=== PATIENT | female | born 1995 | race African-American/Black ===

== ENCOUNTER 2016-09-26 15:40 | Emergency (ER) | payer MEDICAID ==
[2016-09-26 16:21] VITALS: BP 103/76
[2016-09-26 16:46] LABS: Hematocrit 41 % (35-47); Hemoglobin 13.4 g/dl (12.0-16.0); Mean Corpuscular HGB Conc 33 g/dl (31-36); Mean Corpuscular Hemoglobin 29 pg (27-31); Mean Corpuscular Volume 89 fL (80-97); Mean Platelet Volume 7 um3 (7.4-10.4); Red Blood Count 4.58 10^6/ul (4.0-5.4); Red Cell Distribution Width 13 % (10.5-15); White Blood Count 3.9 10^3/ul (3.5-10.8)
[2016-09-26 16:54] LABS: Urine Bacteria 1+ (Absent); Urine Bilirubin Negative (Negative); Urine Glucose Negative (Negative); Urine Nitrite Negative (Negative)
[2016-09-26 17:01] LABS: ALT 7 U/L (7-52); AST 15 U/L (13-39); Albumin 4.5 g/dL (3.2-5.2); Alkaline Phosphatase 39 U/L (34-104); Amylase 20 U/L (29-103); Anion Gap -7 mmol/L (2-11); BUN/Creatinine Ratio 10.5 (8-20); Blood Urea Nitrogen 8 mg/dL (6-24); C Reactive Protein < 1.00 mg/L (< 5.00); CO2 Carbon Dioxide 25 mmol/L (22-32); Calcium 9.6 mg/dL (8.6-10.3); Chloride 111 mmol/L (101-111); EGFR African American 122.4 (>60); EGFR Non-African American 95.2 (>60); Glucose 82 mg/dL (70-100); Lipase 13 U/L (11.0-82.0); Potassium 3.7 mmol/L (3.5-5.0); Sodium 129 mmol/L (133-145); Total Protein 7.5 g/dL (6.4-8.9)
[2016-09-26 17:22] LABS: Urine Bacteria 1+ (Absent); Urine Bilirubin Negative (Negative); Urine Glucose Negative (Negative); Urine Nitrite Negative (Negative)
[2016-09-26] MEDS ORDERED: metroNIDAZOLE TAB* 250 MG PO ONE (18:25)
--- NOTE | 2016-09-26 19:09 | ED ---
Rashmi Rhoades Claudia, scribed for Maximus Bowser MD on 09/26/16 at 1621 . Complex/Multi-Sys Presentation - HPI Summary HPI Summary: 21 year old female presents to the ED with what she states as "a bad infection in her body". Pt notes that her Sx have been happening for a year now but she has not been able to figure out what is happening. She admits to sore throat,SIMS, CP, SOB and white vaginal discharge. Pt states she has been sexually active but not recently, also noted she had her last menstrual period about a month ago. She notes that it feels like "the infection is popping all over her body". She notes that last night it was "popping" around her arms and it is "popping" around her throat. She states that she thinks she is going to . Pt states she needs help to get medicine or whatever it is to get it out of her body. - History Of Current Complaint Time Seen by Provider: 09/26/16 16:14 Hx Obtained From: Patient Onset/Duration: Lasting Weeks - a year, Still Present Timing: Constant Associated Signs And Symptoms: Positive: Headache, SOB, Chest Pain, Other - vaginal discharge - Allergies/Home Medications Allergies/Adverse Reactions: Allergies Allergy/AdvReac Type Severity Reaction Status Date / Time No Known Allergies Allergy Verified 09/26/16 16:00 PMH/Surg Hx/FS Hx/Imm Hx Previously Healthy: Yes Endocrine/Hematology History: Denies: Hx Diabetes - Surgical History Surgery Procedure, Year, and Place: No SHx Infectious Disease History: Denies: Traveled Outside the [place] in Last 30 Days - Family History Known Family History: Negative: Hypertension, Diabetes - Social History Occupation: Unemployed Lives: Alone Alcohol Use: None Hx Substance Use: Yes Substance Use Type: Reports: None Hx Tobacco Use: Yes Smoking Status (MU): Heavy Every Day Tobacco Smoker Review of Systems Constitutional: Negative Eyes: Negative Positive: Sore Throat Positive: Chest Pain Positive: Shortness Of Breath Gastrointestinal: Negative Positive: discharge Musculoskeletal: Negative Skin: Negative Positive: Headache Psychological: Normal All Other Systems Reviewed And Are Negative: Yes Physical Exam - Summary Physical Exam Summary: VITAL SIGNS: Reviewed. GENERAL: Patient is a well developed and nourished female who is lying comfortable in the stretcher. Patient is not in any acute respiratory distress. HEAD AND FACE: Normocephalic and atraumatic. EYES: PERRLA, EOMI x 2, No injected conjunctiva. EARS: Hearing grossly intact. Ear canals and tympanic membranes are WNL. MOUTH: Oropharynx within normal limits. NECK: Supple, trachea is midline, no adenopathy, no JVD. CHEST: Symmetric, no tenderness at palpation LUNGS: Clear to auscultation bilaterally. No wheezing or crackles. CVS: RRR,, S1 and S2 present, no murmurs or gallops appreciated. ABDOMEN: Soft, non-tender. No signs of distention. Positive bowel sounds. No rebound no guarding, and no masses palpated. No abdominal bruit or pulsations. EXTREMITIES: FROM in all major joints, no edema, no cyanosis or clubbing. NEURO: Alert and oriented x 3. No acute neurological deficits. Speech is normal. SKIN: Dry and warm : Circumcised penis, both testicles are descended. No masses are appreciated. Positive cremasteric reflex. SPEECH AND LANGUAGE CLINICIAN: Female clinical dermatologist is present during the examination. External genitalia: within normal limits. No rashes, lesions or ecchymosis. Speculum exam: vaginal blackwell with no lesions, masses, or rashes. Positive white discharge. Cervix normal. No CMTs. No adnexal masses. All cultures were collected and send to the lab. Triage Information Reviewed: Yes Vital Signs On Initial Exam: Initial Vitals Temp Pulse Resp BP Pulse Ox 99.4 F 62 16 103/76 98 09/26/16 16:05 09/26/16 16:05 09/26/16 16:05 09/26/16 16:05 09/26/16 16:05 Vital Signs Reviewed: Yes Diagnostics - Vital Signs Vital Signs Temp Pulse Resp BP Pulse Ox 09/26/16 16:05 99.4 F 62 16 103/76 98 - Laboratory Lab Results: Lab Results 09/26/16 09/26/16 09/26/16 Range/Units 16:02 16:02 16:15 WBC 3.9 (3.5-10.8) 10^3/ul RBC 4.58 (4.0-5.4) 10^6/ul Hgb 13.4 (12.0-16.0) g/dl Hct 41 (35-47) % MCV 89 (80-97) fL MCH 29 (27-31) pg MCHC 33 (31-36) g/dl RDW 13 (10.5-15) % Plt Count 348 (150-450) 10^3/ul MPV 7 L (7.4-10.4) um3 Neut % (Auto) 33.5 L (38-83) % Lymph % (Auto) 52.4 H (25-47) % [place] % (Auto) 11.1 H (1-9) % Eos % (Auto) 2.2 (0-6) % Baso % (Auto) 0.8 (0-2) % Absolute Neuts (auto) 1.3 L (1.5-7.7) 10^3/ul Absolute Lymphs (auto) 2.1 (1.0-4.8) 10^3/ul Absolute Monos (auto) 0.4 (0-0.8) 10^3/ul Absolute Eos (auto) 0.1 (0-0.6) 10^3/ul Absolute Basos (auto) 0 (0-0.2) 10^3/ul Absolute Nucleated RBC 0 10^3/ul Nucleated RBC % 0.1 Sodium 129 L (133-145) mmol/L Potassium 3.7 (3.5-5.0) mmol/L Chloride 111 (101-111) mmol/L Carbon Dioxide 25 (22-32) mmol/L Anion Gap -7 L (2-11) mmol/L BUN 8 (6-24) mg/dL Creatinine 0.76 (0.51-0.95) mg/dL Est GFR ( Amer) 122.4 (>60) Est GFR (Non-Af Amer) 95.2 (>60) BUN/Creatinine Ratio 10.5 (8-20) Glucose 82 (70-100) mg/dL Calcium 9.6 (8.6-10.3) mg/dL Total Bilirubin 0.40 (0.2-1.0) mg/dL AST 15 (13-39) U/L ALT 7 (7-52) U/L Alkaline Phosphatase 39 (34-104) U/L C-Reactive Protein < 1.00 (< 5.00) mg/L Total Protein 7.5 (6.4-8.9) g/dL Albumin 4.5 (3.2-5.2) g/dL Globulin 3.0 (2-4) g/dL Albumin/Globulin Ratio 1.5 (1-3) Amylase 20 L (29-103) U/L Lipase 13 (11.0-82.0) U/L Urine Color Yellow Urine Appearance Cloudy Urine pH 6.0 (5-9) Ur Specific [place] 1.021 (1.010-1.030) Urine Protein Negative (Negative) Urine Ketones Negative (Negative) Urine Blood Negative (Negative) Urine Nitrate Negative (Negative) Urine Bilirubin Negative (Negative) Urine Urobilinogen Negative (Negative) Ur Leukocyte Esterase 3+ H (Negative) Urine WBC (Auto) 1+(6-10/hpf) H (Absent) Urine RBC (Auto) 3+(>10/hpf) H (Absent) Ur Squamous Epith Cells Present H (Absent) Urine Bacteria 1+ H (Absent) Urine Glucose Negative (Negative) 09/26/16 Range/Units 17:05 WBC (3.5-10.8) 10^3/ul RBC (4.0-5.4) 10^6/ul Hgb (12.0-16.0) g/dl Hct (35-47) % MCV (80-97) fL MCH (27-31) pg MCHC (31-36) g/dl RDW (10.5-15) % Plt Count (150-450) 10^3/ul MPV (7.4-10.4) um3 Neut % (Auto) (38-83) % Lymph % (Auto) (25-47) % [place] % (Auto) (1-9) % Eos % (Auto) (0-6) % Baso % (Auto) (0-2) % Absolute Neuts (auto) (1.5-7.7) 10^3/ul Absolute Lymphs (auto) (1.0-4.8) 10^3/ul Absolute Monos (auto) (0-0.8) 10^3/ul Absolute Eos (auto) (0-0.6) 10^3/ul Absolute Basos (auto) (0-0.2) 10^3/ul Absolute Nucleated RBC 10^3/ul Nucleated RBC % Sodium (133-145) mmol/L Potassium (3.5-5.0) mmol/L Chloride (101-111) mmol/L Carbon Dioxide (22-32) mmol/L Anion Gap (2-11) mmol/L BUN (6-24) mg/dL Creatinine (0.51-0.95) mg/dL Est GFR ( Amer) (>60) Est GFR (Non-Af Amer) (>60) BUN/Creatinine Ratio (8-20) Glucose (70-100) mg/dL Calcium (8.6-10.3) mg/dL Total Bilirubin (0.2-1.0) mg/dL AST (13-39) U/L ALT (7-52) U/L Alkaline Phosphatase (34-104) U/L C-Reactive Protein (< 5.00) mg/L Total Protein (6.4-8.9) g/dL Albumin (3.2-5.2) g/dL Globulin (2-4) g/dL Albumin/Globulin Ratio (1-3) Amylase (29-103) U/L Lipase (11.0-82.0) U/L Urine Color Yellow Urine Appearance Cloudy Urine pH 7.0 (5-9) Ur Specific [place] 1.012 (1.010-1.030) Urine Protein Negative (Negative) Urine Ketones Negative (Negative) Urine Blood Negative (Negative) Urine Nitrate Negative (Negative) Urine Bilirubin Negative (Negative) Urine Urobilinogen Negative (Negative) Ur Leukocyte Esterase 2+ H (Negative) Urine WBC (Auto) Trace(0-5/hpf) (Absent) Urine RBC (Auto) Trace(0-2/hpf) (Absent) Ur Squamous Epith Cells Present H (Absent) Urine Bacteria 1+ H (Absent) Urine Glucose Negative (Negative) Result Diagrams: 09/26/16 16:02 09/26/16 16:02 Lab Statement: Any lab studies that have been ordered have been reviewed, and results considered in the medical decision making process. Re-Evaluation - Re-Evaluation 1 Re-Evaluation Time: 18:25 Change: Improved Comment: Lab resulsts are discussed with patient. Pt is improved and is ready to be d/c home with follow-up with PCP. Complex Multi-Symp Course/Dx Assessment/Plan: 21 year old [facility] with c/c of not feeling well , weakness and vaginal discharge. She reports having Sx for 1 year, sexually active but she reports not recently. The last menstrual period was on September 01 but shes not sure. She denies vaginal bleeding, lab within nml limits except sodium of 129. Urine analysis is contaminated therefore I sent for urine cultures. Pelvic exam reveals some white discharge likely; bacterial vaginosis therefore pt is given flavix. Everything was discussed with the pt, she is stable and will be d/c home with follow-up with PCP. \\. I discussed all my findings and test results with the patient. Patient understands and agrees. Patient was instructed to return to the emergency room immediately if any of the symptoms return or worsens. Patient understands and agrees. Plan of care was discussed with the patient and patient understands and agrees with the plan of care. All questions were answered at patient satisfaction. There were no further complaints or concerns. Patient was instructed to follow up with primary care physician within 3 to 5 days. Patient is hemodynamically stable. Patient is alert and oriented x 3. No acute neurological deficits. - Diagnoses Provider Diagnoses: Bacterial vaginosis Discharge - Discharge Plan Condition: Stable Disposition: HOME Prescriptions: Metronidazole [Flagyl 500 MG TAB] 500 mg PO BID #14 tab Patient Education Materials: Metronidazole (By mouth), Bacterial Vaginosis (ED) Referrals: [facility] [Outside] - 2 Days (Please follow-up with a [facility] Care Provider. ) The documentation as recorded by the Rashmi boswell Claudia accurately reflects the service I personally performed and the decisions made by me, Maximus Bowser MD.
--- NOTE | 2016-09-28 07:27 | ED ---
Progress - Progress Note Progress Note: Patient with vaginal culture shows + trichomonas. Patient was appropriately treated with metronidazole. Attempted to call patient to alert her of STD and need to treat partners, however only active phone number is inactive. Will send a letter to ask the patient to call to discuss results. Re-Evaluation - Re-Evaluation 1 Re-Evaluation Time: 18:25 Change: Improved Comment: Lab resulsts are discussed with patient. Pt is improved and is ready to be d/c home with follow-up with PCP. Course/Dx - Diagnoses Provider Diagnoses: Bacterial vaginosis
== END 2016-09-26 19:10 | disposition home or self-care (01) ==
LOC: ED 15:40
DX: N76.0 Acute vaginitis (principal); F17.200 Nicotine dependence, unspecified, uncomplicated
CPT/HCPCS: 36415; 80053; 81003; 81015; 82150; 83690; 85025; 86140; 87086; 87480; 87491; 87510; 87591; 87660; 99283; A9270-GY

== ENCOUNTER 2016-10-28 17:45 | Emergency (ER) | payer MEDICAID ==
[2016-10-28 17:57] VITALS: BP 111/69
[2016-10-28] MEDS ORDERED: Ketorolac INJ* 60 MG/2 ML VIAL IM ONE (18:42)
--- NOTE | 2016-10-28 19:21 | ED ---
Complex/Multi-Sys Presentation - HPI Summary HPI Summary: Patient arrives with mother to ED with a CC of toothache and body aches 10/10 "all over my body." She states the body aches have been present for over 1 year and possibly up to 7 years. She feels as though there are bugs crawling on her skin and states it id definitely from a systemic infection in which she needs antibiotics to be treated. She was seen in ED 1 month ago and full labs and pelvic examination performed. All labs WNL. She continues to feel the same despite the full workup and is requesting another full workup. Provider explained that d/t her feeling the same as the previous month, the likeliness of labs being the same are very high. Mother agrees with provider and thinks she is feeling the sensitivities all over body because of the tooth infection. Patient agrees to accept antibiotic and follow up as an outpatient. Denies fever, urinary or abdominal pain in specific location. Continues to state she has 10/10 all over, the same as it has been for many years. - History Of Current Complaint Chief Complaint: EDDentalPain Time Seen by Provider: 10/28/16 17:59 Hx Obtained From: Patient, Family/Can Striper Onset/Duration: Gradual Onset, Still Present Timing: Constant Severity Currently: Moderate Severity Initially: Moderate Location: Pain At: - all over Character: Unable To Describe - feels as if something is crawling all over her skin Related History: Similar Episode/Diagnosed As: - previous visits - Allergies/Home Medications Allergies/Adverse Reactions: Allergies Allergy/AdvReac Type Severity Reaction Status Date / Time No Known Allergies Allergy Verified 09/26/16 16:00 PMH/Surg Hx/FS Hx/Imm Hx Previously Healthy: Yes Endocrine/Hematology History: Denies: Hx Diabetes - Surgical History Surgery Procedure, Year, and Place: No SHx Infectious Disease History: No Infectious Disease History: Denies: Traveled Outside the [place] in Last 30 Days - Family History Known Family History: Negative: Hypertension, Diabetes - Social History Occupation: Student Lives: With Family Alcohol Use: None Hx Substance Use: Yes Substance Use Type: Reports: None Hx Tobacco Use: Yes Smoking Status (MU): Heavy Every Day Tobacco Smoker Review of Systems Constitutional: Negative Cardiovascular: Negative Respiratory: Negative Positive: Abdominal Pain, Other - pain all over Genitourinary: Negative Positive: Other - pain all over Positive: Other - feels like something is crawling on her skin Neurological: Negative Positive: Anxious All Other Systems Reviewed And Are Negative: Yes Physical Exam Triage Information Reviewed: Yes Vital Signs On Initial Exam: Initial Vitals Temp Pulse Resp BP Pulse Ox 99.2 F 82 16 111/69 99 10/28/16 17:50 10/28/16 17:50 10/28/16 17:50 10/28/16 17:50 10/28/16 17:50 Vital Signs Reviewed: Yes Appearance: Positive: Well-Appearing, No Pain Distress, Well-Nourished Skin: Positive: Warm, Skin Color Reflects Adequate Perfusion Head/Face: Positive: Normal Head/Face Inspection Eyes: Positive: EOMI, ROB ENT: Positive: Pharynx normal, TMs normal Dental: Positive: Abscess @ - left upper canine Respiratory/Lung Sounds: Positive: Clear to Auscultation, Breath Sounds Present Cardiovascular: Positive: Normal Abdomen Description: Positive: Nontender, No Organomegaly, Other: - non-tender on exam, although her pain is 10/10 at rest Bowel Sounds: Positive: Present Musculoskeletal: Positive: Normal Neurological: Positive: Normal, Reflexes Intact, Speech Normal Psychiatric: Positive: Anxious AVPU Assessment: Alert Diagnostics - Vital Signs Vital Signs Temp Pulse Resp BP Pulse Ox 10/28/16 17:50 99.2 F 82 16 111/69 99 - Laboratory Lab Statement: Any lab studies that have been ordered have been reviewed, and results considered in the medical decision making process. Complex Multi-Symp Course/Dx Course Of Treatment: Patient was counseled on importance of PCP and routine dental care. Provider explained lab work obtained 1 month ago would most likely be similiar if we did labwork today d/t her feeling the same. No fever, SIMS. Feels as if bugs are crawling on her skin and states it is d/t the systemic infection in her body. Upper left canine with some erythema around the tooth with multiple dental caries and gingivitis. Abx given. Toradol given. Encouraged ibuprofen at home. Patient is OK with plan and will call womens health and PCP for further evaluation. - Diagnoses Provider Diagnoses: Dental abscess, Gingivitis Is Visit Related: No Discharge - Discharge Plan Condition: Stable Disposition: HOME Prescriptions: Amoxicillin/Clavulanate TAB* [Augmentin TAB 875*] 875 mg PO BID #14 tab MDD 2 Patient Education Materials: Dental Abscess (ED) Referrals: [facility] [Provider Group] [facility] [Provider Group] Additional Instructions: Follow up with dentist and PCP Augmentin twice daily for 7 days May take ibuprofen 600mg three times daily with meals as needed for pain.
== END 2016-10-28 19:07 | disposition home or self-care (01) ==
LOC: ED 17:45
DX: K04.7 Periapical abscess without sinus (principal); K05.10 Chronic gingivitis, plaque induced; F17.200 Nicotine dependence, unspecified, uncomplicated
CPT/HCPCS: 96372; 99282; J1885

== ENCOUNTER → 2017-06-19 12:34 | Emergency (ER) | payer SELFPAY ==
[2017-06-19 12:54] VITALS: BP 117/56
[2017-06-19 13:33] LABS: UR Preg Internal Control QC Line Present; Urine Bilirubin Negative (Negative); Urine Glucose Negative (Negative); Urine Nitrite Negative (Negative)
--- NOTE | 2017-06-25 12:32 | ED ---
Elba Rhoades Nilda, scribed for Pilo Sanchez MD on 06/19/17 at 1332 . Complex/Multi-Sys Presentation - HPI Summary HPI Summary: Patient is a 22 y.o. F presenting to [facility] with a chief complaint of constant moderate wisdom tooth pain which has been ongoing for 3 years. Symptoms are alleviated by OTC pain medication. Patient reports throat pressure and possible due to late menstrual period (20 days late). - History Of Current Complaint Chief Complaint: EDGeneral Time Seen by Provider: 06/19/17 13:12 Hx Obtained From: Patient Onset/Duration: Gradual Onset - 3 years, Still Present Timing: Constant Severity Initially: Moderate Location: Pain At: - teeth Alleviating Factor(s): OTC pain medication Associated Signs And Symptoms: Positive: Other - sore throat - Allergies/Home Medications Allergies/Adverse Reactions: Allergies Allergy/AdvReac Type Severity Reaction Status Date / Time No Known Allergies Allergy Verified 09/26/16 16:00 PMH/Surg Hx/FS Hx/Imm Hx Endocrine/Hematology History: Denies: Hx Diabetes - Surgical History Surgery Procedure, Year, and Place: No SHx Infectious Disease History: Yes Infectious Disease History: Denies: Traveled Outside the [place] in Last 30 Days - Family History Known Family History: Negative: Hypertension, Diabetes - Social History Alcohol Use: None Hx Substance Use: Yes Substance Use Type: Reports: None Hx Tobacco Use: Yes Smoking Status (MU): Heavy Every Day Tobacco Smoker Review of Systems Negative: Fever, Chills Negative: Erythema Positive: Dental Pain - wisdom teeth, Sore Throat - throat pressure Negative: Chest Pain Negative: Shortness Of Breath, Cough Negative: Abdominal Pain, Vomiting, Nausea Positive: other - late menstrual period. Negative: dysuria, hematuria Negative: Myalgia, Edema Negative: Rash Neurological: Other - Negative dizziness All Other Systems Reviewed And Are Negative: Yes Physical Exam - Summary Physical Exam Summary: Constitutional: Well-developed, Well-nourished, Alert. (-) Distressed Skin: Warm, Dry HENT: Normocephalic; Atraumatic Eyes: Conjunctiva normal Neck: Musculoskeletal ROM normal neck. (-) JVD, (-) Stridor, (-) Tracheal deviation Cardio: Rhythm regular, rate normal, Heart sounds normal; Intact distal pulses; The pedal pulses are 2+ and symmetric. Radial pulses are 2+ and symmetric. (-) Murmur Pulmonary/Chest wall: Effort normal. (-) Respiratory distress, (-) Wheezes, (-) Rales Abd: Soft, (-) Tenderness, (-) Distension, (-) Guarding, (-) Rebound Musculoskeletal: (-) Edema Lymph: (-) Cervical adenopathy Neuro: Alert, Oriented x3 Psych: Mood and affect Normal Triage Information Reviewed: Yes Vital Signs On Initial Exam: Initial Vitals Temp Pulse Resp BP Pulse Ox 98.2 F 64 12 117/56 100 06/19/17 12:41 06/19/17 12:41 06/19/17 12:41 06/19/17 12:41 06/19/17 12:41 Vital Signs Reviewed: Yes Diagnostics - Vital Signs Vital Signs Temp Pulse Resp BP Pulse Ox 06/19/17 12:41 98.2 F 64 12 117/56 100 - Laboratory Lab Statement: Any lab studies that have been ordered have been reviewed, and results considered in the medical decision making process. Complex Multi-Symp Course/Dx Assessment/Plan: Patient is a 22 y.o. F presenting to [facility] with a chief complaint of constant moderate wisdom tooth pain which has been ongoing for 3 years. Symptoms are alleviated by OTC pain medication. Patient reports throat pressure and possible due to late menstrual period (20 days late). Test results with no significant abnormalities except for positive test. Patient will be discharged with a diagnosis of and dental pain. Patient will follow up with OBGYN in 2-3 days and dentist. She may take Tylenol for pain. The patient is agreeable with this plan. - Diagnoses Provider Diagnoses: , Pain, dental Discharge - Discharge Plan Condition: Stable Disposition: HOME Prescriptions: Penicillin VK TAB* [Penicillin VK 250 mg Tab*] 500 mg PO QID #40 tab Vitamin TAB* 1 tab PO DAILY #30 tab Patient Education Materials: (ED), Toothache (ED) Referrals: Jessenia Schmid MD [Medical Doctor] - 2 Days Additional Instructions: Follow up with dentist. Take Tylenol for pain. RETURN TO THE EMERGENCY DEPARTMENT FOR CHANGING OR WORSENING SYMPTOMS. The documentation as recorded by the Elba boswell Nilda accurately reflects the service I personally performed and the decisions made by , Pilo Sanchez MD.
== END | disposition home or self-care (01) ==
LOC: ED 12:34
DX: J02.9 Acute pharyngitis, unspecified (principal); K08.89 Other specified disorders of teeth and supporting structures; F17.210 Nicotine dependence, cigarettes, uncomplicated
CPT/HCPCS: 81003; 81025; 99282

== ENCOUNTER 2017-08-06 14:10 | Emergency (ER) | payer SELFPAY ==
[2017-08-06 14:32] VITALS: BP 87/54
--- NOTE | 2017-08-06 14:49 | UC ---
Throat Pain/Nasal Isauro HPI - HPI Summary HPI Summary: Patient presents with chronic complaints of stuffy nose and a sensation that something feels like it is stuck in her throat. SHe is currently as is seen am [facility]. She denies any fever, chills, sob, chest pain, abdominal pain, abnormal vaginal bleeding, dishcarge, or dysuria. She denies any rhinorhea, cough, chest congestion, cough, sputum production, itchy eyes, or rashes. - History of Current Complaint Chief Complaint: UCGeneralIllness Stated Complaint: EAR COMPLAINT Time Seen by Provider: 08/06/17 14:17 Hx Obtained From: Patient ?: Yes Onset/Duration: Gradual Onset, Lasting Weeks Severity: Mild Associated Signs & Symptoms: Positive: Sinus Discomfort - Epiglottits Risk Factors Epiglottis Risk Factors: Negative - Allergies/Home Medications Allergies/Adverse Reactions: Allergies Allergy/AdvReac Type Severity Reaction Status Date / Time No Known Allergies Allergy Verified 08/06/17 14:32 PMH/Surg Hx/FS Hx/Imm Hx Previously Healthy: Yes - Surgical History Surgical History: None Surgery Procedure, Year, and Place: No SHx - Family History Known Family History: Negative: Hypertension, Diabetes - Social History Occupation: Unemployed Alcohol Use: None Substance Use Type: None Smoking Status (MU): Never Smoked Tobacco - Immunization History Most Recent Influenza Vaccination: Not UTD Review of Systems Constitutional: Negative Skin: Negative Eyes: Negative ENT: Sinus Congestion Respiratory: Negative Cardiovascular: Negative Gastrointestinal: Negative Genitourinary: Negative Motor: Negative Neurovascular: Negative Musculoskeletal: Negative Is Patient Immunocompromised?: No All Other Systems Reviewed And Are Negative: Yes Physical Exam Triage Information Reviewed: Yes Appearance: Well-Appearing Vital Signs: Initial Vital Signs Temp 98.4 F 08/06/17 14:25 Pulse 101 08/06/17 14:25 Resp 16 08/06/17 14:25 BP 87/54 08/06/17 14:25 Pulse Ox 97 08/06/17 14:25 Vital Signs Reviewed: Yes Eye Exam: Normal ENT Exam: Normal Dental Exam: Normal Neck exam: Normal Neck: Positive: 1 Respiratory Exam: Normal Cardiovascular Exam: Normal Abdominal Exam: Normal Musculoskeletal Exam: Normal Neurological Exam: Normal Skin Exam: Normal Throat Pain/Nasal Course/Dx - Course Course Of Treatment: Patient presents , with chronic complaints that appear to be allerlgic, she was in no distress. PUlse was noted to be slighlty elevated she was slightly anxious in appearance, and . I referred her to ENT and back to her PACKING MACHINE OPERATOR for recommendations of safe antihistamine use in . She was discharged home in stalbe condition. - Differential Dx/Diagnosis Differential Diagnosis/HQI/PQRI: Other - allergic rhinitis Provider Diagnoses: allergic rhinitis Discharge - Discharge Plan Condition: Stable Disposition: HOME Patient Education Materials: Allergic Rhinitis (ED) Referrals: Ingrid Dumont MD [Primary Care Provider] - Davide Cabello MD [Medical Doctor] - Additional Instructions: I am referring the patient to ENT and back to her PACKING MACHINE OPERATOR for treatment of allergic rhinitis because she is .
== END 2017-08-06 14:53 | disposition home or self-care (01) ==
LOC: UCEAST 14:10
DX: O26.90 Pregnancy related conditions, unspecified, unspecified trimester (principal); Z3A.00 Weeks of gestation of pregnancy not specified; J30.9 Allergic rhinitis, unspecified
CPT/HCPCS: 99212; G0463

== ENCOUNTER 2018-05-07 12:43 | Emergency (ER) | payer OTHER ==
--- NOTE | 2018-05-07 13:08 | ED ---
Complex/Multi-Sys Presentation - HPI Summary HPI Summary: This is scribe [facility] documenting for attending Guru Whitmore MD. Pt is a 23 y/o F c/o diffuse body pain localized in the lower back lasting for a couple years. Pain is rated an 8/10 and chronic, per triage. Assoc. Sx: arthalgia, body pain, depression, anxiety. Denies: rash. Denies Hx of sickle cell anemia. LNMP: ~1 week ago. I, Dr. Whitmore, personally performed the services described in this documentation as scribed in my presence and it is both accurate and complete. - History Of Current Complaint Time Seen by Provider: 05/07/18 12:59 Hx Obtained From: Patient Onset/Duration: Gradual Onset, Lasting Weeks - 3 years, Still Present Timing: Constant Severity Currently: Severe Character: Unable To Describe Associated Signs And Symptoms: Positive: Other - POS: depression, anxiety, arthalgia, body pain. - Allergies/Home Medications Allergies/Adverse Reactions: Allergies Allergy/AdvReac Type Severity Reaction Status Date / Time No Known Allergies Allergy Verified 08/06/17 14:32 PMH/Surg Hx/FS Hx/Imm Hx Endocrine/Hematology History: Denies: Hx Diabetes Psychiatric History: Reports: Other Psychiatric Issues/Disorders - Schizophrenia - Surgical History Surgery Procedure, Year, and Place: No SHx - Family History Known Family History: Negative: Hypertension, Diabetes - Social History Occupation: Unemployed Lives: With Family Alcohol Use: None Hx Substance Use: Yes Substance Use Type: Reports: None Hx Tobacco Use: Yes Smoking Status (MU): Never Smoked Tobacco Review of Systems Positive: Arthralgia - diffuse body pain, she called arthalgia. Negative: Rash Positive: Anxious, Depressed All Other Systems Reviewed And Are Negative: Yes Physical Exam - Summary Physical Exam Summary: Appearance: Well appearing, no pain distress Skin: warm, dry, reflects adequate perfusion Head/face: normal Eyes: EOMI, ROB ENT: normal Neck: supple, non-tender Respiratory: CTA, breath sounds present Cardiovascular: RRR, pulses symmetrical Abdomen: non-tender, soft Bowel Sounds: present Musculoskeletal: normal, strength/ROM intact Neuro: normal, sensory motor intact, A&Ox3 Triage Information Reviewed: Yes Vital Signs Reviewed: Yes Complex Multi-Symp Course/Dx Course Of Treatment: Patient with many years of symptoms presents with blood work from March indicating normal CBC 2, BMP 2. She did have positive EBV IgG. She is following his symptoms with her primary care provider. She has not seen rheumatology. She carries no family history to include thalassemia or sickle cell disorder in this female. I added some rheumatologic markers given her persistence. She was explained that this workup should be continued to her primary care physician. She will be started on Mobic for her discomfort. - Diagnoses Differential Diagnoses/HQI/PQRI: Other - Rheumatologic condition, hematologic condition, anxiety disorder Provider Diagnoses: Chronic pain syndrome Discharge - Sign-Out/Discharge Documenting (check all that apply): Patient Departure - Discharge Plan Condition: Stable Disposition: HOME Prescriptions: Meloxicam [Mobic] 7.5 mg PO DAILY #30 tablet Patient Education Materials: Chronic Pain (ED) Referrals: Ingrid Dumont MD [Primary Care Provider] - Davide Duran MD [Medical Doctor] - Additional Instructions: Return to ED with changing or worsening symptoms. - Billing Disposition and Condition Condition: STABLE Disposition: Home
[2018-05-07 13:54] VITALS: BP 113/60
== END 2018-05-07 13:53 | disposition home or self-care (01) ==
LOC: ED 12:43
DX: G89.4 Chronic pain syndrome (principal); M54.5 Low back pain; M79.1 Myalgia; F41.9 Anxiety disorder, unspecified; F32.9 Major depressive disorder, single episode, unspecified
CPT/HCPCS: 36415; 82550; 85652; 86038; 86140; 86200; 86431; 99282

== ENCOUNTER 2018-08-06 14:46 | Emergency (ER) | payer OTHER ==
[2018-08-06] MEDS ORDERED: Ketorolac INJ* 30 MG/ML 1 ML VIAL IM ONE (15:25)
--- NOTE | 2018-08-06 15:30 | ED ---
Throat Pain/Nasal Congestion - HPI Summary HPI Summary: 23-year-old female presents with months of sore throat pain. She states that she needs to have her tonsils removed. She states that because of her tonsils being enlarged she has developed issues with her kidneys. She admits to flank pain. Denies any urinary symptoms. No nausea no vomiting. No diarrhea or constipation. She denies abdominal pain. No chest pain or shortness breath. She states that she has lots of wax in her ears. No postnasal drip. She admits to sinus congestion. Patient states that if we are unable to do anything for her would like she her pain medication ia Tylenol and ibuprofen are not working. patient states "dentist told me a need my tonsils out. the enlarged tonsils are causing issues in my kidney and causing kidney issues because it is all related and I know my body." - History of Current Complaint Chief Complaint: EDThroatPain Time Seen by Provider: 08/06/18 14:59 - Allergies/Home Medications Allergies/Adverse Reactions: Allergies Allergy/AdvReac Type Severity Reaction Status Date / Time No Known Allergies Allergy Verified 05/27/18 10:57 PMH/Surg Hx/FS Hx/Imm Hx Endocrine/Hematology History: Denies: Hx Diabetes Respiratory History: Denies: Hx Asthma Psychiatric History: Reports: Other Psychiatric Issues/Disorders - Schizophrenia - Surgical History Surgery Procedure, Year, and Place: No SHx Infectious Disease History: No Infectious Disease History: Denies: Traveled Outside the [place] in Last 30 Days - Family History Known Family History: Negative: Hypertension, Diabetes - Social History Alcohol Use: None Hx Substance Use: Yes Substance Use Type: Reports: None Hx Tobacco Use: Yes Smoking Status (MU): Light Every Day Tobacco Smoker Review of Systems Negative: Fever Positive: Sore Throat Negative: Chest Pain Negative: Shortness Of Breath Positive: flank pain All Other Systems Reviewed And Are Negative: Yes Physical Exam Triage Information Reviewed: Yes Vital Signs On Initial Exam: Initial Vitals Temp Pulse Resp BP Pulse Ox 97.9 F 87 18 138/80 100 08/06/18 14:49 08/06/18 14:49 08/06/18 14:49 08/06/18 14:49 08/06/18 14:49 Vital Signs Reviewed: Yes Appearance: Positive: Well-Appearing Skin: Positive: Warm, Dry Head/Face: Positive: Normal Head/Face Inspection Eyes: Positive: Normal, EOMI, ROB, Conjunctiva Clear ENT: Positive: Pharynx normal, Nasal drainage - fluid behind ears, no wax, TMs normal, Tonsillar swelling - +2, Uvula midline, Other - soft palate symmetric. Negative: Tonsillar exudate, Trismus, Muffled voice Respiratory/Lung Sounds: Positive: Clear to Auscultation, Breath Sounds Present Cardiovascular: Positive: Normal, RRR Abdomen Description: Positive: Nontender, Soft, CVA Tenderness (R), CVA Tenderness (L) Bowel Sounds: Positive: Present Musculoskeletal: Positive: Normal Neurological: Positive: Normal Psychiatric: Positive: Normal Diagnostics - Vital Signs Vital Signs Temp Pulse Resp BP Pulse Ox 08/06/18 14:59 97.7 F 71 16 119/70 97 08/06/18 14:49 97.9 F 87 18 138/80 100 - Laboratory Result Diagrams: 08/06/18 15:26 08/06/18 15:26 Lab Statement: Any lab studies that have been ordered have been reviewed, and results considered in the medical decision making process. Re-Evaluation - Re-Evaluation First Eval Re-Evaluation Time: 16:42 Comment: patient states need percocet for pain, explained is a chronic issue and can not write script for chronic issue EENT Course/Dx - Course Course Of Treatment: 23-year-old female presents with months of sore throat pain. She states that she needs to have her tonsils removed. She states that because of her tonsils being enlarged she has developed issues with her kidneys. She admits to flank pain. Denies any urinary symptoms. No nausea no vomiting. No diarrhea or constipation. She denies abdominal pain. No chest pain or shortness breath. She states that she has lots of wax in her ears. No postnasal drip. She admits to sinus congestion. Patient states that if we are unable to do anything for her would like she her pain medication ia Tylenol and ibuprofen are not working. On exam has tonsils +2. No erythema noted. no wax in ears noted. has some fluid behind TM. Lungs clear to auscultation. Positive CVA tenderness. wbc normal. crp normal. urine likely contaminent. renal u/s normal. strept and mono neg. offered to treat with flonase, magic mouth wash and patient declined. states want percocet which advised can not give. requesting referral to ENT to get tonsils out which gave. states having generalized body aches and something is wrong with body. was told to early visit to follow up with rheumatology which could be of benefit as not finding a reason here for symptoms. patient understand and agrees with plan. - Differential Diagnoses Differential Diagnoses: Allergic Rhinitis, Tonsilitis, Other - uti - Diagnoses Provider Diagnoses: Sore throat, Back pain Discharge - Sign-Out/Discharge Documenting (check all that apply): Patient Departure - Discharge Plan Condition: Good Disposition: HOME Prescriptions: Nicotine PATCH 7 MG/24 HR* 1 patch TRANSDERM DAILY #14 patch Referrals: Ingrid Dumont MD [Primary Care Provider] - Davide Duran MD [Medical Doctor] - Davide Cabello MD [Medical Doctor] - Additional Instructions: take tyenlol or ibuprofen for pain use salt water gargles follow up with ENT follow up with rheumatology Return to ED if develop any new or worsening symptoms - Billing Disposition and Condition Condition: GOOD Disposition: Home
[2018-08-06 15:41] LABS: ABS Basophils 0.1 10^3/ul (0-0.2); ABS Eosinophils 0.1 10^3/ul (0-0.6); ABS Lymphocytes 1.8 10^3/ul (1.0-4.8); ABS Monocytes 0.4 10^3/ul (0-0.8); ABS Neutrophils 2.5 10^3/ul (1.5-7.7); ABS Nucleated RBC 0 10^3/ul; Eosinophil % 1.4 % (0-6); Hematocrit 43 % (35-47); Hemoglobin 14.4 g/dl (12.0-16.0); Lymphocyte % 36.8 % (25-47); Mean Corpuscular HGB Conc 34 g/dl (31-36); Mean Corpuscular Hemoglobin 30 pg (27-31); Mean Corpuscular Volume 90 fL (80-97); Mean Platelet Volume 6.9 fL (7.4-10.4); Nucleated Red Blood Cells % 0; Platelet Count 325 10^3/ul (150-450); Red Blood Count 4.79 10^6/ul (4.00-5.40); Red Cell Distribution Width 12 % (10.5-15); White Blood Count 4.9 10^3/ul (3.5-10.8)
[2018-08-06 15:59] LABS: EGFR Non-African American 99.5 (>60)
[2018-08-06 16:09] LABS: Urine Appearance Cloudy; Urine Blood Negative (Negative); Urine Color Straw; Urine Ketones Negative (Negative); Urine Protein Negative (Negative); Urine Red Blood Cell Absent (Absent); Urine Specific Gravity 1.005 (1.010-1.030); Urine Urobilinogen Negative (Negative); Urine White Blood Cell 1+(6-10/hpf) (Absent)
[2018-08-06 17:06] VITALS: BP 135/68
== END 2018-08-06 17:03 | disposition home or self-care (01) ==
LOC: ED 14:46
DX: J02.9 Acute pharyngitis, unspecified (principal); M54.9 Dorsalgia, unspecified; Z72.0 Tobacco use; F20.9 Schizophrenia, unspecified
CPT/HCPCS: 36415; 76775; 80053; 81003; 81015; 83690; 84702; 85025; 86140; 86308; 87086; 87651; 96372; 99281; J1885

== ENCOUNTER 2018-11-02 09:03 | Emergency (ER) | payer SELFPAY ==
--- NOTE | 2018-11-02 09:49 | ED ---
Throat Pain/Nasal Congestion - HPI Summary HPI Summary: Pt is a 23 y/o female who presents to the ED c/o dental pain. Shes been having this issue intermittently for the past 4 years. Pt does not have an acute issue , but would like to have this issue resolved. She reports pain to an unerupted left lower molar, currently rated 6/10 in severity. Pt also c/o cough and mucus in her throat, but denies any fever. The pain is currently rated a 6/10 in severity. Pt has seen a dentist before for her dental issue, however she was told her wisdom tooth did not need to be removed. Pt is a smoker. She tested negative for strep last week. - History of Current Complaint Chief Complaint: EDDentalPain Time Seen by Provider: 11/02/18 09:39 Hx Obtained From: Patient Onset/Duration: Gradual Onset, Lasting Weeks - 4 years, Still Present Associated Signs And Symptoms: Positive: Negative Cough: Nonproductive Related History: Smoking - Allergies/Home Medications Allergies/Adverse Reactions: Allergies Allergy/AdvReac Type Severity Reaction Status Date / Time No Known Allergies Allergy Verified 11/02/18 09:23 PMH/Surg Hx/FS Hx/Imm Hx Endocrine/Hematology History: Denies: Hx Diabetes Respiratory History: Denies: Hx Asthma Psychiatric History: Reports: Other Psychiatric Issues/Disorders - Schizophrenia - Surgical History Surgery Procedure, Year, and Place: No SHx Infectious Disease History: No Infectious Disease History: Denies: Traveled Outside the [place] in Last 30 Days - Family History Known Family History: Negative: Hypertension, Diabetes - Social History Alcohol Use: None Hx Substance Use: No Substance Use Type: Reports: None Hx Tobacco Use: Yes Smoking Status (MU): Light Every Day Tobacco Smoker Review of Systems Negative: Fever Positive: Dental Pain - lower left, Other - congestion in throat Positive: Cough All Other Systems Reviewed And Are Negative: Yes Physical Exam - Summary Physical Exam Summary: Appearance: Well appearing, no pain distress Skin: warm, dry, reflects adequate perfusion Head/face: normal Eyes: EOMI, ROB ENT: mucous membranes moist, unerupted left lower third molar with discomfort Neck: supple, non-tender Respiratory: CTA, breath sounds present Cardiovascular: RRR, pulses symmetrical Abdomen: non-tender, soft Bowel Sounds: present Musculoskeletal: normal, strength/ROM intact Neuro: normal, sensory motor intact, A&Ox3 Triage Information Reviewed: Yes Vital Signs On Initial Exam: Initial Vitals Temp Pulse Resp BP Pulse Ox 98.8 F 97 16 106/74 100 11/02/18 09:18 11/02/18 09:18 11/02/18 09:18 11/02/18 09:18 11/02/18 09:18 Vital Signs Reviewed: Yes Diagnostics - Vital Signs Vital Signs Temp Pulse Resp BP Pulse Ox 11/02/18 09:18 98.8 F 97 16 106/74 100 - Laboratory Lab Statement: Any lab studies that have been ordered have been reviewed, and results considered in the medical decision making process. EENT Course/Dx - Course Course Of Treatment: Nurse's notes reviewed. Patient with ongoing issues with her wisdom teeth over several years but has not had them removed. No significant gingival inflammation or abscess noted. No significant tenderness either. She is here getting her child checked out. She requests antibiotics which were given. She is suggested to follow-up with oral surgery for removal. - Differential Diagnoses Differential Diagnoses: Other - Dental pain, abscess - Diagnoses Provider Diagnoses: Pain, dental Discharge - Sign-Out/Discharge Documenting (check all that apply): Patient Departure - Discharge Patient Received Moderate/Deep Sedation with Procedure: No - Discharge Plan Condition: Improved Disposition: HOME Prescriptions: Penicillin VK 500 MG TAB(NF) [Penicillin VK 500 mg Tab] 500 mg PO QID #40 tab Patient Education Materials: Toothache (ED) Referrals: Ingrid Dumont MD [Primary Care Provider] - Additional Instructions: The store oral surgery to have wisdom teeth removed. Return with fever, worse, new symptoms or other concerns. - Billing Disposition and Condition Condition: IMPROVED Disposition: Home - Attestation Statements Document Initiated by Lilianaibe: Yes Documenting Scribe: Ana Cristina Humphreys Provider For Whom Светлана is Documenting (Include Credential): Guru Whitmore MD Scribe Attestation: Ana Cristina Rhoades scribed for Guru Whitmore MD on 11/02/18 at 1117. Scribe Documentation Reviewed: Yes Provider Attestation: The documentation as recorded by the Ana Cristina boswell accurately reflects the service I personally performed and the decisions made by me, Guru Whitmore MD Status of Scribe Document: Viewed
[2018-11-02 11:16] VITALS: BP 126/63
== END 2018-11-02 11:15 | disposition home or self-care (01) ==
LOC: ED 09:03
DX: K08.89 Other specified disorders of teeth and supporting structures (principal); R05 Cough; F17.200 Nicotine dependence, unspecified, uncomplicated
CPT/HCPCS: 99282

== ENCOUNTER 2019-07-06 10:39 | Emergency (ER) | payer SELFPAY ==
--- NOTE | 2019-07-06 11:12 | ED ---
HPI Chest Pain - HPI Summary HPI Summary: Pt is a 24 y/o F presenting to the ED for a chief complaint of chest pain and SOB for the last few months. Pt reports that the CP is midsternal and radiates to the back. Pt also admits pain and swelling in the bilateral LE, and throat pain. Pt previously saw an ENT physician for the throat pain with unremarkable findings. Pt states that when she eats greasy foods, she has the CP, which worsens with eating. Pt is unsure if the CP is related to eating spicy foods. Pt stopped eating meat due to worsening CP with eating meat. Pt states that drinking water does not alleviate or aggravate the CP. Pt denies a FMHx or PMHx of cardiac problems or blood clots. Pt admits a PMHx of bronchitis as a child. Pt denies recent travel. Pt smokes 2 cigarettes a day. Pt denies any PSHx, alcohol, or drug use. Pt does not currently take any medications. - History of Current Complaint Chief Complaint: EDChestWallPain Time Seen by Provider: 07/06/19 10:57 Hx Obtained From: Patient Onset/Duration: Started Weeks Ago, Atraumatic, Still Present Timing: Constant, Lasting Weeks Initial Severity: Severe Current Severity: Severe Pain Intensity: 8 Pain Scale Used: 0-10 Numeric Chest Pain Location: Mid Sternal Chest Pain Radiates: Yes Chest Pain Radiates To:: Back Aggravating Factor(s): Other: - After eating greasy foods and meat, no change with water Alleviating Factor(s): Other: - No change with water Associated Signs and Symptoms: Positive: Chest Pain, Shortness of Breath, Edema - Bilateral LE, Other: - Positive throat pain and myalgia of bilateral LE - Allergy/Home Medications Allergies/Adverse Reactions: Allergies Allergy/AdvReac Type Severity Reaction Status Date / Time No Known Allergies Allergy Verified 07/06/19 10:53 Home Medications: Home Medications Acetaminophen TAB* [Tylenol TAB*] 325 mg PO Q4H PRN 07/06/19 [History Confirmed 07/06/19] PMH/Surg Hx/FS Hx/Imm Hx Previously Healthy: Yes Endocrine/Hematology History: Denies: Hx Diabetes Respiratory History: Reports: Other Respiratory Problems/Disorders - Hx bronchitis in childhood Denies: Hx Asthma Sensory History: Denies: Hx Legally Blind, Hx Deafness Opthamlomology History: Denies: Hx Legally Blind EENT History: Denies: Hx Deafness Psychiatric History: Reports: Other Psychiatric Issues/Disorders - Schizophrenia - Surgical History Surgical History: None Surgery Procedure, Year, and Place: No SHx Infectious Disease History: No Infectious Disease History: Denies: Traveled Outside the [place] in Last 30 Days - Family History Known Family History: Negative: Hypertension, Diabetes - Social History Occupation: Employed Full-time Lives: With Family Alcohol Use: None Hx Substance Use: No Substance Use Type: Reports: None Hx Tobacco Use: Yes Smoking Status (MU): Light Every Day Tobacco Smoker - 2x a day Type: Cigarettes Review of Systems Positive: Chest Pain - Midsternal, worsens after eating greasy foods and meat Positive: Shortness Of Breath Positive: Myalgia - Bilateral LE, Edema - Bilateral LE All Other Systems Reviewed And Are Negative: Yes Physical Exam - Summary Physical Exam Summary: Constitutional: Well-developed, Well-nourished, Alert. (-) Distressed Skin: Warm, Dry HENT: Normocephalic; Atraumatic Eyes: Conjunctiva normal Neck: Musculoskeletal ROM normal neck. (-) JVD, (-) Stridor, (-) Tracheal deviation Cardio: Rhythm regular, rate normal, Heart sounds normal; Intact distal pulses; Radial pulses are 2+ and symmetric. (-) Murmur Pulmonary/Chest wall: Effort normal. (-) Respiratory distress, (-) Wheezes, (-) Rales Abd: Soft, (-) tenderness, (-) Distension, (-) Guarding, (-) Rebound Musculoskeletal: (-) Edema Lymph: (-) Cervical adenopathy Neuro: Alert, Oriented x3 Psych: Mood and affect Normal Triage Information Reviewed: Yes Vital Signs On Initial Exam: Initial Vitals Temp Pulse Resp BP Pulse Ox 99 F 84 16 97/62 99 07/06/19 10:40 07/06/19 10:40 07/06/19 10:40 07/06/19 10:40 07/06/19 10:40 Vital Signs Reviewed: Yes Procedures - Sedation Patient Received Moderate/Deep Sedation with Procedure: No Diagnostics - Vital Signs Vital Signs Temp Pulse Resp BP Pulse Ox 07/06/19 10:40 99 F 84 16 97/62 99 - Laboratory Lab Statement: Any lab studies that have been ordered have been reviewed, and results considered in the medical decision making process. - Radiology Chest X-ray Radiology Interpretation Completed By: Radiologist Summary of Radiographic Findings: Chest X-ray IMPRESSION: No active cardiopulmonary disease is noted. Reviewed by ED physician. - EKG 10:40 Cardiac Rate: NL - 65 BPM EKG Rhythm: Sinus Rhythm ST Segment: Normal Ectopy: None Summary of EKG Findings: EKG at 10:40 shows normal sinus rhythm at 65 BPM, no ST segment changes. Reviewed and interpreted by ED physician. Chest Pain Course/Dx - Course Course Of Treatment: Patient is here with multiple months of chronic chest pain. Patient's pain is not consistent with ACS. Patient is PERC negative. Patient had a negative chest x-ray for any acute abnormality. Patient EKG which is grossly unremarkable. Patient's pain does radiate into her throat and is worse after eating so she was started on omeprazole as a trial. - Diagnoses Provider Diagnoses: Chest wall pain Discharge ED - Sign-Out/Discharge Documenting (check all that apply): Patient Departure - Discharge - Discharge Plan Condition: Stable Disposition: HOME Patient Education Materials: Chest Wall Pain (ED) Forms: *Work Release Referrals: Ingrid Dumont MD [Primary Care Provider] - Additional Instructions: Start omeprazole, follow up with Dr. Dumont in 1-3 days. Return to the ED for worsening symptoms. Avoid greasy foods, spicy foods, coffee, and eating within 3 hours of bedtime. - Billing Disposition and Condition Condition: STABLE Disposition: Home - Attestation Statements Document Initiated by Светлана: Yes Documenting Winge: Jemima Baldwin Provider For Whom Светлана is Documenting (Include Credential): Adam Saha MD Scribe Attestation: Jemima Rhoades, scribed for Adam Saha MD on 07/06/19 at 2025. Scribe Documentation Reviewed: Yes Provider Attestation: The documentation as recorded by the Jemima boswell accurately reflects the service I personally performed and the decisions made by , Adam Saha MD Status of Scribe Document: Viewed
[2019-07-06 12:39] VITALS: BP 109/64
== END 2019-07-06 12:59 | disposition home or self-care (01) ==
LOC: ED 10:39
DX: R07.89 Other chest pain (principal); R06.02 Shortness of breath; R60.0 Localized edema; R07.0 Pain in throat; M79.10 Myalgia, unspecified site; F17.210 Nicotine dependence, cigarettes, uncomplicated
CPT/HCPCS: 71046; 93005; 99282